=== PATIENT | male | born 1970 | race African-American/Black ===

== ENCOUNTER 2016-10-25 19:00 | Inpatient (IN) | payer BC, OTHER ==
--- NOTE | ~2016-10-25 | CO ---
Unit #: [id number] #: [id number] Patient: ANA MARÍA HERNANDEZ [id number] [facility] [address] [place] [address] [id number] I MR#: [id number] NAME: ANA MARÍA HERNANDEZ ROOM: [facility] Age: 46 Sex: M Admission Date: 10/25/2016 : 1970 Attending Physician: Schuyler Hooks M.D. Primary Care Physician: Glenna Doctor Not In System Consultation Date: 10/26/2016 CONSULTATION REPORT ORDERING PROVIDER Dr. Hooks. REASON FOR CONSULT Diabetic management. SUBJECTIVE The patient reports that he is a type 2 diabetic. His regimen of medications are metformin 1000 mg t.i.d., Lantus 45 units at bedtime, and Humalog 45 units at each meal. His last A1c was 8.7 and that was approximately one month ago. He reports that he is not always compliant with his medications. Although he typically takes his basal insulin, he often forgets his mealtime insulins. OBJECTIVE His blood sugars have been running in the high 200s and early in the low 300s since admission. He has been getting his NovoLog sliding scale, but he did not get any basal insulin last night. He also has not been getting his metformin. ASSESSMENT Diabetes. PLAN Plan is to put the patient only on Levemir 35 units at bedtime. Continue with sliding scale at meals. Change his diet to consistent carb and do metformin 850 mg t.i.d. We will continue to monitor blood sugars. Dictated by... Niki Pichardo A.P.R.N. for Zen Weiss/merary TD: 10/26/2016 22:06 JOB #: [id number] Unit #: [id number] #: [id number] Patient: ANA MARÍA HERNANDEZ CONSULTATION REPORT Page 1 of 1 X NIKI PICHARDO APRN CONSULTATION REPORT
--- NOTE | ~2016-10-25 | PN ---
Unit #: [id number] #: [id number] Patient: ANA MARÍA ARGUETA [id number] [facility] [address] [place] [address] [id number] I MR#: [id number] NAME: ANA MARÍA ARGUETA ROOM: P211 Age: 46 Sex: M Admission Date: 10/25/2016 : 1970 Attending Physician: Schuyler Hooks M.D. Admitting Physician: Schuyler Hooks M.D. Primary Care Physician: Glenna Doctor Not In System [facility] PROGRESS NOTES DATE OF SERVICE: 10/27/2016 SUBJECTIVE Mr. Argueta is a 46-year-old white male, who was seen today and chart was reviewed and the case was discussed with the staff. He has been anxious, withdrawn, and rather seclusive to himself. Meanwhile, he has been cooperative with the treatment recommendations and has been taking the medications and tolerating them fairly well with no reported side effects. MENTAL STATUS EXAMINATION Middle-aged white male, who was casually dressed with fair personal hygiene, appears to be in no acute distress or discomfort. He was awake and alert on interaction with intact orientation. His mood was anxious with a congruent affect. He denies any suicidal or homicidal ideations. His insight and judgment remain slightly impaired. TREATMENT PLAN 1. We will continue him on his current medications and treatment protocol. We will monitor his response and make further adjustments as needed. 2. We will continue to follow up. Dictated by... Zen Melgar/noryl TD: 10/27/2016 13:23 JOB #: [id number] [facility] PROGRESS NOTES Page 1 of 1 X Schuyler Hooks MD PROGRESS NOTE
--- NOTE | ~2016-10-25 | PN ---
Unit #: [id number] #: [id number] Patient: ANA MARÍA ARGUETA [id number] [facility] [address] [place] [address] [id number] MR#: [id number] NAME: ANA MARÍA ARGUETA ROOM: [facility] Age: 46 Sex: M Admission Date: 10/25/2016 : 1970 Attending Physician: Schuyler Hooks M.D. Admitting Physician: Schuyler Hooks M.D. Primary Care Physician: Glenna Doctor Not In System [facility] PROGRESS NOTES DATE 10/28/2016 DISCUSSION Mr. Argueta is a 46-year-old, male who was seen today and chart was reviewed and case was discussed with the staff. He has been anxious, withdrawn though has not shown any agitation, irritability and has been cooperative with the treatment recommendations. He has been taking the medication and tolerating them fairly well with no reported side effects. MENTAL STATUS EXAM Middle-aged Lebanese male who was casually dressed with fair personal hygiene, appears to be in no acute distress or discomfort. He was awake and alert with impaired attention and concentration. His mood was anxious with congruent affect. His speech was slow and restricted in content. He denies any suicidal or homicidal ideation. Also, denies any auditory or visual hallucinations. His insight and judgement remains slightly impaired. TREATMENT PLAN 1. We will continue him on his current medications and treatment protocol. We will monitor his response to the medication and make further adjustment as needed. 2. We will continue to follow up. Dictated by... Zen Melgar/anna marie TD: 10/29/2016 03:10 JOB #: [id number] Unit #: [id number] #: [id number] Patient: ANA MARÍA ARGUETA PROGRESS NOTES Page 1 of 1 X Schuyler Hooks MD PROGRESS NOTE
--- NOTE | ~2016-10-25 | HP ---
Unit #: [id number] #: [id number] Patient: ANA MARÍA HERNANDEZ [id number] [facility] [address] [place] [address] [id number] I MR#: [id number] NAME: ANA MARÍA HERNANDEZ ROOM: [facility] Age: 46 Sex: M Admission Date: 10/25/2016 : 1970 Attending Physician: Schuyler Hooks M.D. Admitting Physician: Schuyler Hooks M.D. Primary Care Physician: Generic Doctor Not In System HISTORY AND PHYSICAL HISTORY OF PRESENT ILLNESS The patient is a 46-year-old male admitted to [address] [place] [address] on 10/25/2016 for suicidal ideations and cocaine abuse. PAST MEDICAL HISTORY 1. Obesity 2. Cocaine abuse 3. Diabetes 4. History of OR 5. Herpes 6. Hypertension 7. 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 He lives in a [facility] house. He smokes one pack of cigarettes daily and uses cocaine on a daily basis. FAMILY MEDICAL HISTORY Noncontributory. ALLERGIES No known drug allergies. CURRENT MEDICATIONS 1. Omeprazole 2. Isosorbide 3. Meclizine 4. Metoprolol 5. Humalog 6. Clindamycin gel 7. Lisinopril 8. Lantus 9. Abilify 10. Nitroglycerin 11. Wellbutrin 12. Gabapentin 13. Metformin REVIEW OF SYSTEMS CONSTITUTIONAL: No fever or chills. Unit #: [id number] #: [id number] Patient: ANA MARÍA HERNANDEZ HEENT: Denies any sore throat, ear pain or runny nose. CARDIOVASCULAR: Denies chest pain, irregular heart rhythm or palpitations. CHEST: Denies shortness of breath or cough. No hemoptysis. GASTROINTESTINAL: Denies nausea, vomiting, diarrhea or chronic constipation. ENDOCRINE: Denies history of increased thirst or urination. No recent significant weight loss or gain. GENITOURINARY: Denies dysuria, frequency, or hematuria. SKIN: Denies any rashes. HEMATOLOGIC: Denies history of increased bleeding or bruising. MUSCULOSKELETAL: Denies any hot, swollen joints. No generalized muscle pain. NEUROLOGIC: Denies problems with vision or speech. No frequent, severe headaches. No numbness, tingling or weakness in any extremities. Denies loss of bladder or bowel control. PHYSICAL EXAM GENERAL: He is awake, alert and oriented in no acute distress. VITAL SIGNS: Temperature 97.8, heart rate 83, respiration 16, blood pressure 149/85. HEIGHT: 5'11". WEIGHT: 236 pounds. SKIN: Warm and dry without rash or lesion. HEENT: Normocephalic. TMs not viewed. Oral and nasal passages clear. Conjunctivae clear. PERRLA. EOMs intact. NECK: Supple without lymphadenopathy or thyromegaly. HEART: Regular rate and rhythm without murmur. LUNGS: Clear. ABDOMEN: Soft, nontender. : Not done. EXTREMITIES: No evidence of cyanosis, clubbing or edema. Moves all without focal deficit. NEUROLOGICAL: Grossly within normal limits. Cranial Nerves: II: Visual cunningham are intact. III, IV AND : Extraocular movements are intact. Pupils are equal, round and reactive to light. V: Facial sensation is grossly normal. VII: Facial movements and expression are normal. VIII: Auditory acuity grossly intact. IX, X: Uvula is midline. Phonation is normal. XI: Patient shrugs shoulders and turns head normally. XII: Tongue protrudes in the midline. Sensory and Motor Function: Sensory and motor sensation is grossly normal. Motor: moves all extremities well. IMPRESSION 1. Psychiatric admission. 2. Cocaine abuse. 3. Obesity. 4. Diabetes. 5. History of OR with stents. 6. Herpes. 7. Hypertension. 8. Hyperlipidemia. 9. Nicotine dependence. RECOMMENDATIONS Psychiatric per psychiatrist. MEDICAL: No contraindication to participate in facility activities. Unit #: [id number] #: [id number] Patient: ANA MARÍA HERNANDEZ MEDICAL PROGNOSIS Fair. MEDICAL CONDITION Stable. Dictated by... Mariana Abrams/anna marie TD: 10/27/2016 00:41 JOB #: [id number] HISTORY AND PHYSICAL Page 1 of 1 X MADHU PARKER APRN HISTORY AND PHYSICAL
--- NOTE | ~2016-10-25 | PA ---
Unit #: [id number] #: [id number] Patient: ANA MARÍA ARGUETA [id number] [place] [address] [id number] I MR#: [id number] NAME: ANA MARÍA ARGUETA ROOM: P211 Age: 46 Sex: M Admission Date: 10/25/2016 : 1970 Date of Assessment: Attending Physician: Schuyler Hooks M.D. Admitting Physician: Schuyler Hooks M.D. PSYCHIATRIC ASSESSMENT DATE OF SERVICE 10/26/2016. IDENTIFYING DATA Mr. Argueta is a 46-year-old single male who is a resident of [place], [place] and was self-referred to the hospital on a voluntary basis. CHIEF COMPLAINT "Suicidal ideations." HISTORY OF PRESENT ILLNESS Mr. Argueta is a 46-year-old male who presented to [facility] reporting suicidal ideation and plan to jump from a bridge and also endorsed cocaine abuse and has reports that he is advised to come to the hospital by [employer] due to suicidal ideation ongoing and has been seen at the [facility] many years ago and reports that he used cocaine with the last use yesterday and he has been having thoughts of jumping off [place] [address] [place]. He does report increasing depression, anxiety, and irritability, and restlessness, and feelings of hopelessness and helplessness, and suicidal ideations and intent and plan and was seen to be danger to self and others and as such, recommendation for inpatient level of care for safety and stabilization was made and the patient was transferred to us. SUBSTANCE ABUSE HISTORY The patient has extensive history of substance abuse and dependence including experimentation with cannabis and cocaine, opioids, and currently cocaine has been his drug of choice. PAST PSYCHIATRIC HISTORY The patient has had history of inpatient psychiatric treatment at [facility], [facility], [facility], and currently he is not seeing a psychiatrist, and is not taking any psychotropic medications. PAST MEDICAL HISTORY The patient's medical history significant for hypertension, dyslipidemia, coronary artery disease, history of myocardial infarction, type 1 diabetes mellitus, history of herpes. ALLERGIES Unit #: [id number] #: [id number] Patient: ANA MARÍA ARGUETA No known medication allergies. PERSONAL AND SOCIAL HISTORY A 46-year-old male who reports that he is single, unemployed, and lives alone and has poor social support system. MENTAL STATUS EXAMINATION Middle-aged male who was casually dressed with fair personal hygiene, appears to be in no acute distress or discomfort. He was awake and alert on interaction with intact orientation to time, place, and person. His mood was anxious and depressed with a congruent affect. His speech was slow and restricted in content. His thought processes were disorganized with some looseness of associations and suicidal ideations. His insight and judgment remain significantly impaired. DIAGNOSTIC IMPRESSION Psychiatric: Major depressive disorder, recurrent, moderate, without psychotic features; cocaine dependence, moderate. Medical: Hypertension, dyslipidemia, coronary artery disease, history of myocardial infarction, diabetes mellitus, herpes. Stressors: Moderate psychosocial stressors. TREATMENT PLAN 1. The patient has presented with history of mood disorder and substance abuse and has been decompensating and will need inpatient hospitalization for detoxification, and safety, and stabilization. We will start him back on his home medications. We will adjust the medications and monitor response. 2. Supportive therapy was provided to the patient. 3. Safe, structured, and nourishing environment will be provided. ESTIMATED LENGTH OF STAY 5 to 7 days. ABILITY TO HELP SELF Limited. WILLINGNESS TO HELP SELF The patient appears to be willing to help self. STRENGTHS 1. Communicative. 2. Cooperative. PROBLEMS 1. Chronic dysphoric symptoms. 2. Chronic chemical dependency. 3. Poor social support system. DISCHARGE CRITERIA This will be contingent upon the patient's ability to go through detox without having any significant withdrawal symptoms and his ability to stay safe to himself, particularly after discharge from the hospital. Dictated by... Schuyler Hooks M.D. Unit #: [id number] #: [id number] Patient: ANA MARÍA ARGUETA DONALD/noryl TD: 10/26/2016 13:20 JOB #: [id number] PSYCHIATRIC ASSESSMENT Page 1 of 1 X Schuyler Hooks MD PSYCHIATRIC ASSESSMENT
--- NOTE | ~2016-10-25 | DS ---
Unit #: [id number] #: [id number] Patient: [facility]GUETA [id number] [facility] [address] [place] [address] [id number] MR#: [id number] NAME: ANA MARÍA ARGUETA ROOM: [facility] Age: 46 Sex: M Admission Date: 10/25/2016 : 1970 Discharge Date: 10/29/2016 Attending Physician: Schuyler Hooks M.D. Primary Care Physician: Generic Doctor Not In System DISCHARGE SUMMARY IDENTIFYING DATA Mr. Argueta is a 44-year-old male, who was self-referred to the hospital. DISCHARGE DIAGNOSES Psychiatric: Major depressive disorder, recurrent, moderate, without psychotic features and cocaine dependence, moderate. Medical: Hypertension, diabetes mellitus, and gastroesophageal reflux disease. Stressors: Mild psychosocial stressors. HISTORY OF PRESENT ILLNESS Please see initial psychiatric evaluation for details. PAST PSYCHIATRIC HISTORY Please see initial psychiatric evaluation for details. PAST MEDICAL HISTORY Please see initial psychiatric evaluation for details. HOSPITAL COURSE The [facility] and was oriented to the hospital environment. Routine p.r.n. medications were initiated, and he was started back on his home medications and medications were adjusted, and Effexor and Abilify were initiated; however, he was on a 72 hours hold upon initial presentation, and once that , he refused to stay in the treatment any longer and as such, it was decided that he will be discharged home and will continue treatment on an outpatient basis. DISCHARGE CONDITION Stable. PROGNOSIS Fair. Dictated by... Zen Melgar/merary TD: 11/21/2016 13:25 Unit #: [id number] #: [id number] Patient: ANA MARÍA ARGUETA JOB #: [id number] DISCHARGE SUMMARY Page 1 of 1 X Schuyler Hooks MD X DISCHARGE SUMMARY
[~2016-10-25 19:00] MED LIST: ADVAIR 2501 DISK W/D; COREG; CRESTOR; FLOVENT HFA12 GM; GLYBURIDE; GLYNASE; LANTUS100 U/ML; METFORMIN; NITROGYLCERIN; PLAVIX; ZOCOR
[2016-10-27 09:41] LABS: BASOPHIL% 0.5 % (0-2.5); EOSINOPHIL# 0.2 X10e3 (0-0.7); EOSINOPHIL% 4.7 % (0.0-7.0); HEMATOCRIT 40.8 % (38.0-50.0); HEMOGLOBIN 13.3 gm/dL (13.0-16.0); LYMPHOCYTE# 1.5 X10e3 (1.0-3.5); LYMPHOCYTE% 31.1 % (17.0-45.0); MEAN CELL VOLUME 91.8 FL (83-96); MEAN CORPUSCULAR HGB CONC 32.6 g/dL (30-36); MEAN PLATELET VOLUME 8.6 FL (6.5-11.5); MONOCYTE# 0.4 X10e3 (0-1.0); MONOCYTE% 8.1 % (3.0-12.0); NEUTROPHIL# 2.7 X10e3 (1.5-7.1); NEUTROPHIL% 55.6 % (40-75); PLATELET COUNT 223 X10e3 (140-420); RED BLOOD COUNT 4.45 X10e (3.90-5.60); WHITE BLOOD COUNT 4.9 X10e3 (4.0-10.5)
[2016-10-27 09:50] LABS: URINE APPEARANCE CLEAR; URINE BILIRUBIN NEG (NEG); URINE BLOOD NEG (NEG); URINE COLOR YELLOW; URINE GLUCOSE >1000 MG/DL (NEG); URINE KETONE NEG (NEG); URINE LEUKOCYTE ESTERASE NEG (NEG); URINE NITRATE NEG (NEG); URINE PH 7.5 (5-8); URINE PROTEIN NEG (NEG); URINE SPECIFIC GRAVITY 1.033 (1.003-1.035)
[2016-10-27 09:51] LABS: DIFF IND NO
[2016-10-27 10:17] LABS: ALBUMIN SERUM 3.6 g/dL (3.5-5.0); BILIRUBIN,TOTAL 0.4 mg/dL (0.2-2.0); BUN/CREATININE RATIO 11.11; CREATININE SERUM 0.9 mg/dL (0.6-1.4); GLOM FILT RATE Estimated 116.6 mL/min (>60); POTASSIUM 4.7 mmol/L (3.5-5.1); PROTEIN TOTAL SERUM 6.9 g/dL (6.0-8.3)
== END 2016-10-29 09:23 | disposition home or self-care (01) | DRG 885 ==
LOC: P2S 21:45
PROVIDERS: Psychiatry & Neurology Psychiatry
PROC: HZ2ZZZZ Detoxification Services for Substance Abuse Treatment (ICD-10-PCS; principal; 2016-10-25)
DX: F33.1 Major depressive disorder, recurrent, moderate (principal); E11.8 Type 2 diabetes mellitus with unspecified complications; F14.20 Cocaine dependence, uncomplicated; I10 Essential (primary) hypertension; E78.5 Hyperlipidemia, unspecified; I25.10 Atherosclerotic heart disease of native coronary artery without angina pectoris; I25.2 Old myocardial infarction; B00.9 Herpesviral infection, unspecified; E66.9 Obesity, unspecified; Z68.32 Body mass index [BMI] 32.0-32.9, adult
CPT/HCPCS: 80053; 81003; 82947; 85025